=== PATIENT | male | born 1995 | race Caucasian/White ===

== ENCOUNTER 2018-01-29 01:10 | Emergency (ER) | payer SELFPAY ==
[~2018-01-29] VITALS: Ht 177.8 cm; Wt 5.4 kg
[2018-01-29 05:02] LABS: BASOPHILS % 0.5 % (0.0-2.0); EOSINOPHILS % 1.9 % (0.0-5.0); HEMATOCRIT. 44.6 % (42.0-52.0); HEMOGLOBIN. 15.3 g/dL (14.0-18.0); LYMPHOCYTES % 27.4 % (20.0-50.0); MEAN CORPUSCULAR HEMOGLOBIN 30.7 pg (28.0-32.0); MEAN CORPUSCULAR VOLUME 89.5 fL (80.0-94.0); MEAN PLATELET VOLUME 9.2 fl (7.4-10.4); MONOCYTES % 10.5 % (2.0-8.0); NEUTROPHILS % 59.7 % (40.0-76.0); PLATELET 175 x1000/uL (130-400); RED BLOOD CELL COUNT 4.98 mill/uL (4.7-6.1)
[2018-01-29 05:55] LABS: CLARITY URINE CLEAR (CLEAR); COLOR URINE YELLOW (YELLOW); KETONES URINE NEGATIVE (NEGATIVE); LEUKOCYTE ESTERASE URINE NEGATIVE (NEGATIVE); NITRITE URINE NEGATIVE (NEGATIVE); OCCULT BLOOD URINE NEGATIVE (NEGATIVE); PROTEIN URINE NEGATIVE (NEGATIVE); SPECIFIC GRAVITY URINE 1.005 (1.005-1.030); UROBILINOGEN URINE 0.2 E.U./dL (0.2-1.0)
[2018-01-29 06:54] VITALS: BP 124/68
== END 2018-01-29 06:56 | disposition home or self-care (01) ==
LOC: ER 04:37
DX: R10.31 Right lower quadrant pain (principal)
CPT/HCPCS: 36415; 81003; 85025; 99284; Z7610